=== PATIENT | female | born 1955 | race Caucasian/White ===

== ENCOUNTER 2017-02-16 10:24 | Day surgery (SDC) | payer BC ==
[~2017-02-16 10:24] MED LIST: NS 0.9% 1000 ML* 1,000 ML IV SCH
[2017-02-16] MEDS ORDERED: Midazolam* 1 MG/ML 2 ML VIAL (2 MG) ONE ×3 (10:47→12:48)
[2017-02-16] MEDS ORDERED: fentaNYL* 50 MCG/ML 2 ML VIAL (100 MCG VIAL) ONE (10:47)
[2017-02-16] MEDS ORDERED: Buffered Lidocaine 1% SYRIN* 5 ML/SYR SYRINGE ONE (10:55)
[2017-02-16] MEDS ORDERED: Clindamycin 900 MG IVPREMIX(* 900 MG/50 ML SDV IV ONE (10:55)
[2017-02-16] MEDS ORDERED: Lidocain 1% EPI 1:100,000 * 30 ML MDV ONE ×2 (11:07→11:44)
[2017-02-16] MEDS ORDERED: Lidocaine 2% PF * 5 ML VIAL ONE (11:39)
[2017-02-16] MEDS ORDERED: diPHENhydraMINE IV* 50 MG/ML 1 ml VIAL (BENADRYL) ONE (11:39)
[2017-02-16] MEDS ORDERED: Propofol* 10 MG/ML 20 ML BTL IV PUSH ONE ×2 (11:39→13:08)
[2017-02-16] MEDS ORDERED: Famotidine IV* 10 MG/ML 2 ML (20 mg) ONE (11:39)
[2017-02-16] MEDS ORDERED: KETAMINE HCL* 50 MG/ML 10 ML VIAL ONE (12:03)
[2017-02-16] MEDS ORDERED: HYDROmorphone* 1 MG/ML 1 ML SYR IV PRN (12:18)
[2017-02-16] MEDS ORDERED: Acetaminophen TAB* 325 MG PO PRN (12:18)
[2017-02-16] MEDS ORDERED: PROCHLORPERAZINE INJ 5 MG/ML 2 ML VIAL IV PRN (12:18)
[2017-02-16] MEDS ORDERED: HYDROcodone/ACETAMIN 5-325 MG* 1 TAB PO PRN (12:18)
[2017-02-16] MEDS ORDERED: Ondansetron INJ* 2 MG/ML VIAL IV PRN (12:18)
[2017-02-16 15:48] VITALS: BP 145/82
== END 2017-02-16 16:02 | disposition home or self-care (01) ==
LOC: OR 10:24
PROVIDERS: ATTEND Plastic Surgery
DX: C44.329 Squamous cell carcinoma of skin of other parts of face (principal); Z87.891 Personal history of nicotine dependence; F41.8 Other specified anxiety disorders; I10 Essential (primary) hypertension; I36.8 Other nonrheumatic tricuspid valve disorders
CPT/HCPCS: 88305; 88331; 88332; J1200; J2250; J2704; J3010

== ENCOUNTER 2017-03-18 09:16 | Day surgery (SDC) | payer BC ==
[~2017-03-18 09:16] MED LIST changes: +Buffered Lidocaine 0.9% SYRIN* 5 ML/SYR SYRINGE INTRADERM ONE; -NS 0.9% 1000 ML* 1,000 ML IV SCH
[2017-03-18] MEDS ORDERED: Buffered Lidocaine 0.9% SYRIN* 5 ML/SYR SYRINGE ONE (09:22)
[2017-03-18] MEDS ORDERED: ceFAZolin 2 GM PREMIX(*) 0 GM/0 ML BAG IVPB ONE (09:22)
[2017-03-18] MEDS ORDERED: Clindamycin 900 MG IVPREMIX(* 900 MG/50 ML SDV IV ONE (10:56)
[2017-03-18] MEDS ORDERED: Lidocaine 1% MPF wEPI 200,000* 30 ML SDV ONE (11:01)
[2017-03-18] MEDS ORDERED: Bupivacaine 0.25% W/EPI* 50 ML VIAL ONE (11:02)
[2017-03-18] MEDS ORDERED: Mineral Oil Sterile, TOPICAL* 25 ML BTL ONE (11:06)
[2017-03-18] MEDS ORDERED: Bupivacaine 0.25% EPI 200,000* 30 ML SDV ONE (11:06)
[2017-03-18] MEDS ORDERED: Methylene Blue 1% (ANTIDOTE)* 10 MG/ML 1 ML SDV VIAL IVPB ONE (11:06)
[2017-03-18] MEDS ORDERED: fentaNYL* 50 MCG/ML 2 ML VIAL (100 MCG VIAL) ONE (11:27)
[2017-03-18] MEDS ORDERED: Midazolam* 1 MG/ML 5 ML VIAL (5 MG) ONE (11:28)
[2017-03-18] MEDS ORDERED: Lidocaine 2% PF * 5 ML VIAL ONE (12:03)
[2017-03-18] MEDS ORDERED: Propofol* 10 MG/ML 20 ML BTL IV PUSH ONE ×2 (12:03→13:00)
[2017-03-18] MEDS ORDERED: Midazolam* 1 MG/ML 2 ML VIAL (2 MG) ONE (12:57)
[2017-03-18] MEDS ORDERED: Labetalol IV* 5 MG/ML 20 ML VIAL ONE (14:16)
[2017-03-18 14:43] VITALS: BP 140/82
== END 2017-03-18 14:55 | disposition home or self-care (01) ==
LOC: OR 09:16
PROVIDERS: ATTEND Plastic Surgery
PROC: 0HBJXZZ Excision of Left Upper Leg Skin, External Approach (ICD-10-PCS; 2017-03-18)
PROC: 0HRJX74 Replacement of Left Upper Leg Skin with Autologous Tissue Substitute, Partial Thickness, External Approach (ICD-10-PCS; principal; 2017-03-18 10:45)
DX: C44.729 Squamous cell carcinoma of skin of left lower limb, including hip (principal); I10 Essential (primary) hypertension
CPT/HCPCS: 88305; 88331; 88332; A9270-GY; J0690; J2001; J2250; J2704; J3010

== ENCOUNTER 2017-08-05 06:40 | Day surgery (SDC) | payer BC ==
[2017-08-05] MEDS ORDERED: Ondansetron INJ* 2 MG/ML VIAL ONE (07:15)
[2017-08-05] MEDS ORDERED: Dexamethasone IV* 4 MG/ML 1 ML (4 MG) ONE (07:15)
[2017-08-05] MEDS ORDERED: Clindamycin 900 MG IVPREMIX(* 900 MG/50 ML SDV IV ONE (07:16)
[2017-08-05] MEDS ORDERED: Bacitracin OINTMENT* 1 TUBE ONE (07:19)
[2017-08-05] MEDS ORDERED: fentaNYL* 50 MCG/ML 2 ML VIAL (100 MCG VIAL) ONE (07:32)
[2017-08-05] MEDS ORDERED: Midazolam* 1 MG/ML 2 ML VIAL (2 MG) ONE ×2 (07:32→08:03)
[2017-08-05] MEDS ORDERED: Lidocaine 1% MPF wEPI 200,000* 30 ML SDV ONE (07:38)
[2017-08-05] MEDS ORDERED: Famotidine IV* 10 MG/ML 2 ML (20 mg) ONE (07:46)
[2017-08-05] MEDS ORDERED: KETAMINE HCL* 50 MG/ML 10 ML VIAL ONE (08:01)
[2017-08-05] MEDS ORDERED: fentaNYL* 50 MCG/ML 2 ML VIAL (100 MCG VIAL) IV PRN (08:28)
[2017-08-05] MEDS ORDERED: Acetaminophen TAB* 325 MG PO PRN (08:28)
[2017-08-05] MEDS ORDERED: HYDROcodone/ACETAMIN 5-325 MG* 1 TAB PO PRN (08:28)
[2017-08-05] MEDS ORDERED: Ondansetron INJ* 2 MG/ML VIAL IV PRN (08:28)
[2017-08-05] MEDS ORDERED: PROCHLORPERAZINE INJ 5 MG/ML 2 ML VIAL IV PRN (08:28)
[2017-08-05] MEDS ORDERED: Lidocaine 2% PF * 5 ML VIAL ONE (08:37)
[2017-08-05] MEDS ORDERED: Propofol* 10 MG/ML 20 ML BTL IV PUSH ONE (08:37)
[2017-08-05 09:40] VITALS: BP 122/78
== END 2017-08-05 09:35 | disposition home or self-care (01) ==
LOC: OREAST 06:40
PROVIDERS: ATTEND Plastic Surgery
DX: H02.401 Unspecified ptosis of right eyelid (principal); H02.89 Other specified disorders of eyelid; I10 Essential (primary) hypertension; F41.8 Other specified anxiety disorders; I36.1 Nonrheumatic tricuspid (valve) insufficiency; Z85.828 Personal history of other malignant neoplasm of skin
CPT/HCPCS: 88300; A9270-GY; J1100; J2001; J2250; J2405; J2704; J3010

== ENCOUNTER 2017-09-10 09:12 | Observation (INO) | payer BC ==
[~2017-09-10 09:12] MED LIST changes: +Famotidine IV* 10 MG/ML 2 ML (20 mg) IV ONE
[2017-09-10] MEDS ORDERED: Buffered Lidocaine 0.9% SYRIN* 5 ML/SYR SYRINGE ONE (09:28)
[2017-09-10] MEDS ORDERED: Famotidine IV* 10 MG/ML 2 ML (20 mg) ONE (09:28)
[2017-09-10] MEDS ORDERED: fentaNYL* 50 MCG/ML 5 ML VIAL (250 MCG VIAL) ONE ×2 (12:38→14:32)
[2017-09-10] MEDS ORDERED: Ondansetron INJ* 2 MG/ML VIAL ONE ×2 (12:38→18:11)
[2017-09-10] MEDS ORDERED: Lidocaine 2% PF * 5 ML VIAL ONE (12:38)
[2017-09-10] MEDS ORDERED: Cisatracurium* 2 MG/ML MDV 5 ML ONE (12:38)
[2017-09-10] MEDS ORDERED: Dexamethasone IV* 4 MG/ML 1 ML (4 MG) ONE (12:38)
[2017-09-10] MEDS ORDERED: Propofol* 10 MG/ML 20 ML BTL IV PUSH ONE (12:38)
[2017-09-10] MEDS ORDERED: KETAMINE HCL* 50 MG/ML 10 ML VIAL ONE (12:39)
[2017-09-10] MEDS ORDERED: Lidocaine 1% MPF wEPI 200,000* 30 ML SDV ONE (12:39)
[2017-09-10] MEDS ORDERED: Midazolam* 1 MG/ML 10 ML VIAL (10 MG) ONE (12:39)
[2017-09-10] MEDS ORDERED: Ondansetron INJ* 2 MG/ML VIAL IV PRN ×2 (14:02→22:29)
[2017-09-10] MEDS ORDERED: fentaNYL* 50 MCG/ML 2 ML VIAL (100 MCG VIAL) IV PRN (14:02)
[2017-09-10] MEDS ORDERED: Levalbuterol 0.63MG/3ML NEB* UNIT OF USE INH PRN (14:02)
[2017-09-10] MEDS ORDERED: EPHEDrine (Pressors)* 50 MG/ML VIAL ONE (14:58)
[2017-09-10] MEDS ORDERED: Bacitracin OINTMENT* 0.5% 0.5 oz TUBE ONE (17:25)
[2017-09-10] MEDS ORDERED: Labetalol IV* 5 MG/ML 20 ML VIAL ONE (18:51)
[2017-09-10] MEDS ORDERED: DiMENhydriNATE IV* 50 MG/ML VIAL ONE (18:51)
[2017-09-10] MEDS ORDERED: Labetalol IV* 5 MG/ML 20 ML VIAL IV PUSH ONE (21:00)
[2017-09-10] MEDS ORDERED: DiMENhydriNATE IV* 50 MG/ML VIAL IV PUSH ONE (21:00)
[2017-09-10] MEDS ORDERED: Ibuprofen ADULT LIQ* 600 MG/30 ML UDC PO PRN (22:22)
[2017-09-10] MEDS ORDERED: HYDROcodone/ACET. 7.5/325 LIQ* 15 ML UDC PO PRN ×2 (22:24→22:25)
[2017-09-10] MEDS ORDERED: Ondansetron ODT TAB* 4 MG PO PRN (22:27)
[2017-09-10] MEDS ORDERED: Morphine INJ* 2 MG/ML 1 ML SYRINGE (TWO MG - NEW SYRINGE VERSION) IV PRN (22:27)
[2017-09-10] MEDS ORDERED: Ondansetron INJ* 2 MG/ML VIAL IM PRN (22:29)
--- NOTE | 2017-09-11 00:36 | HP ---
ATTENDING PHYSICIAN AMENDMENT NOW INCLUDED ON THIS REPORT CC: Dr. Jeff Orellana; Jluis Juarez * HISTORY AND PHYSICAL: DATE OF ADMISSION: 09/10/17 PRIMARY CARE PROVIDER: Dr. Jeff Orellana. ATTENDING PHYSICIAN: Dr. Roseann Kwong * (dictated by Piotr Alcala NP) CHIEF COMPLAINT: Status post right parotidectomy with neck dissection. HISTORY OF PRESENT ILLNESS: Ms. Kumar is a 61-year-old female with past medical history significant for hypertension, malignant neoplasm of the parotid gland, skin cancer, depression, anxiety, who presented to the hospital to have a right parotidectomy with a neck dissection with Dr. Jluis Juarez today. The patient states that leading up to her procedure she has been in a good state of health. She denies any recent fever, chills, chest pain, shortness of breath, nausea, vomiting, diarrhea. The patient had resection of a large skin cancer from the right upper cheek approximately 6 months ago. 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 There is no other evidence of metastasis. The hospitalist have been asked to assess with the admission of this patient. PAST MEDICAL HISTORY: 1. Essential hypertension. 2. Malignant neoplasm of the parotid gland. 3. Squamous cell skin carcinoma. 4. Depression. 5. Anxiety. PAST SURGICAL HISTORY: Status post squamous cell excision from the right cheek and leg status post brow lift. HOME MEDICATIONS: Include: 1. Trazodone 50 mg oral daily at bedtime. 2. Zoloft 50 mg oral every morning. 3. Amlodipine 2.5 mg oral every morning. 4. Acetaminophen 1000 mg oral daily as needed for pain. ALLERGIES: AZITHROMYCIN, ERYTHROMYCIN, PENICILLIN, SULFA, TETRACYCLINE. FAMILY HISTORY: The patient reports her father had a liver and renal carcinoma. She denies any family history of diabetes mellitus or coronary artery disease. SOCIAL HISTORY: The patient is a former smoker. She quit at age 25. She denies any alcohol, recreational drug use. The patient's daughter, Angie Aguilar will be her surrogate decision maker in the event she is unable to make decisions for herself. REVIEW OF SYSTEMS: I performed a 14-point of review of systems. All the pertinent positives and negatives are mentioned in the history of present illness. The remaining review of systems are negative. PHYSICAL EXAMINATION GENERAL APPEARANCE: The patient is alert, pleasant, and appears to be in no acute distress. VITAL SIGNS: Temperature 97.5, heart rate 93, respiratory rate 16, O2 sat 98%, blood pressure 155/95. HEENT: Normocephalic, atraumatic. Pupils are equal and reactive to light. Extraocular movements are intact. NECK: Supple. There is an incision in the patient's right side of her neck. There is some swelling and a ADRIENNE drain intact. RESPIRATORY: There is no accessory muscle use. The lungs are clear to auscultation bilaterally. CARDIOVASCULAR: Regular rate and rhythm. S1 and S2 present. There are no murmurs, rubs, or gallops. ABDOMEN: Soft, nontender, and nondistended. There are bowel sounds present x4. EXTREMITIES: There is no lower extremity edema. DP and PT pulses are 2+ and symmetric. MUSCULOSKELETAL: There is no clubbing or cyanosis noted. The patient exhibits good strength in all extremities. NEUROLOGICAL: The patient is alert but drowsy and oriented x4. Cranial nerves II through XII are grossly intact. PSYCHOLOGICAL: The patient is calm and cooperative. SKIN: As above, the patient has an incision and dressing with a ADRIENNE drain to the right side of her anterior neck. IMPRESSION: Ms. Kumar is a 61-year-old female with past medical history significant for hypertension, anxiety, depression, squamous cell skin carcinoma with a malignant neoplasm to the parotid gland. She presented to the hospital today for a right parotidectomy and neck dissection with Dr. Juarez. She will be admitted as an observation overnight. ASSESSMENT AND PLAN: 1. Status post right parotidectomy with neck dissection. The patient will be admitted to monitor due to her risk of bleeding. She will have a ADRIENNE drain and has a [place] drain in place. Management will be per ENT. The patient will have pain medication. 2. Hypertension. The patient will be continued on her home amlodipine. She has been slightly hypertensive while on the PACU and has received labetalol. 3. Anxiety and depression. The patient will be continued on her home Zoloft. 4. Fluid, electrolytes, and nutrition. The patient will be on a soft diet. 5. Code status. Full code. 6. DVT prophylaxis. She is at high risk and will have SCDs. 7. Disposition. Observation. The plan will be for discharge to home in the morning. TIME SPENT: Time for this admission was approximately 60 minutes, greater than half of that was spent with the patient discussing medications, past medical history, the events leading up to her arrival today, performing a physical examination. The case has been reviewed with the attending, Dr. Kwong, who agrees with the plan of care. Reviewed by PIOTR ALCALA, SUPERVISOR NUC[employer] MEDICINE-Nasir 09/15/172013 ADDENDUM: Ms. Kumar is a 61-year-old female who just underwent resection of a right parotid gland due to metastatic skin squamous cell carcinoma and radical neck dissection performed by Dr. Juarez. Our service is going to be admitting service for the ENT physicians. The patient is going to be observed postoperatively and plan for the patient is to be discharged the next day. For full details of patient's presentation and plan, please see history and physical dictated by Piotr Alcala on 09/10/17, with which I agree. ROSEANN KWONG MD [id number]/CPS #: [id number]/CPS #: [id number] JENNA
--- NOTE | 2017-09-11 00:44 | HP ---
HISTORY AND PHYSICAL: ADDENDUM: Ms. Kumar is a 61-year-old female who just underwent resection of a right parotid gland due to metastatic skin squamous cell carcinoma and radical neck dissection performed by Dr. Juarez. Our service is going to be admitting service for the ENT physicians. The patient is going to be observed postoperatively and plan for the patient is to be discharged the next day. For full details of patient's presentation and plan, please see history and physical dictated by Teresa Rubio on 09/10/17, with which I agree. [id number]/[facility] #: [id number] MTDD
[2017-09-11] MEDS ORDERED: traZODone TAB* 50 MG TAB PO SCH (01:00)
[2017-09-11 08:32] VITALS: BP 102/64
[2017-09-11] MEDS ORDERED: Sertraline* 50 MG TAB PO SCH (09:00)
[2017-09-11] MEDS ORDERED: amLODIPine TAB* 5 MG PO SCH (09:00)
--- NOTE | 2017-09-11 09:20 | DCNOTE ---
Subjective Date of Service: 09/11/17 Interval History: This is a 61 year old female POD1, s/p resection of the right parotid gland with radical neck dissection 2/2 squamous cell carcinoma. She has been cleared for discharge by Dr. Juarez (ENT) today. Objective Active Medications: Hydrocodone Bitart/Acetaminophen (Nortab 7.5/325 Liq*) 10 ml PO Q4H PRN PRN Reason: PAIN - MODERATE Hydrocodone Bitart/Acetaminophen (Nortab 7.5/325 Liq*) 20 ml PO Q4H PRN PRN Reason: PAIN - SEVERE Last Admin: 09/11/17 05:48 Dose: 20 ml Amlodipine Besylate (Norvasc Tab*) 2.5 mg PO DAILY [facility] Lactated Ringer's (Lactated Ringers 1000 Ml Bag*) 1,000 mls @ 100 mls/hr IV PER RATE [facility] Ibuprofen (Motrin Liq Adult*) 800 mg PO Q8H PRN PRN Reason: PAIN - MILD Morphine Sulfate (Morphine Inj (Syringe)*) 2 mg IV Q2H PRN PRN Reason: PAIN Ondansetron HCl (Zofran Odt Tab*) 8 mg PO Q6H PRN PRN Reason: NAUSEA/VOMITING Ondansetron HCl (Zofran Inj*) 8 mg IM Q6H PRN PRN Reason: NAUSEA/VOMITING Ondansetron HCl (Zofran Inj*) 8 mg IV Q6H PRN PRN Reason: NAUSEA/VOMITING Sertraline HCl (Zoloft*) 50 mg PO DAILY [facility] Last Admin: 09/11/17 08:50 Dose: 50 mg Trazodone HCl (Desyrel Tab*) 50 mg PO BEDTIME [facility] Last Admin: 09/11/17 03:06 Dose: Not Given Vital Signs - 8 hr 09/11/17 09/11/17 09/11/17 03:36 05:48 07:47 Temperature 98.7 F 97.8 F Pulse Rate 73 69 Respiratory 16 16 16 Rate Blood Pressure 105/59 102/64 (mmHg) O2 Sat by Pulse 93 96 Oximetry 09/11/17 08:50 Temperature Pulse Rate Respiratory 16 Rate Blood Pressure (mmHg) O2 Sat by Pulse Oximetry Oxygen Devices in Use Now: None Appearance: Well appearing, NAD Ears/Nose/Mouth/Throat: NL Teeth, Lips, Gums Neck: Trachea Midline, - - Staple line CDI, bibiana drain located inferior to the right earlobe, mild erythema, no drainage appreciated Respiratory: Symmetrical Chest Expansion and Respiratory Effort, Clear to Auscultation Cardiovascular: NL Sounds; No Murmurs; No JVD, RRR, No Edema Abdominal: NL Sounds; No Tenderness; No Distention Extremities: No Edema, No Clubbing, Cyanosis Skin: No Rash or Ulcers Neurological: Alert and Oriented x 3, NL Sensation, NL Muscle Strength and Tone Nutrition: Taking PO's Assess/Plan/Problems-Billing Assessment: Plan for DC to home today as per ENT/surgery. - Patient Problems (1) Depression Code(s): F32.9 - MAJOR DEPRESSIVE DISORDER, SINGLE EPISODE, UNSPECIFIED SNOMED Code(s): 33362039 Comment: - Continue home meds, mood stable (2) Hypertension Code(s): I10 - ESSENTIAL (PRIMARY) HYPERTENSION SNOMED Code(s): 40059401 Comment: - Mild hypotension today - Hold norvasc (3) Parotid neoplasm Code(s): D49.0 - NEOPLASM OF UNSPECIFIED BEHAVIOR OF DIGESTIVE SYSTEM SNOMED Code(s): 429080137 Comment: - POC as per ENT/surgery - Cleared by Dr. Juarez for DC this morning - Written DC order and instructions on chart - Has follow up appt and presecriptions already (4) Tobacco dependence Code(s): F17.200 - NICOTINE DEPENDENCE, UNSPECIFIED, UNCOMPLICATED SNOMED Code (s): 19100658 Comment: - Recommend cessation Status and Disposition: Medically optimized for DC home today. Counseling and/or Coordination of Care Minutes: Coordinated with patient and RN.
--- NOTE | 2017-09-11 13:01 | OP ---
DATE OF OPERATION: 09/10/17 - ROOM #336 DATE OF : 55 SURGEON: Jluis Juarez MD CLOTH DESIZING RANGE OPERATOR CHIEF: Clemente White MD ANESTHESIOLOGIST: Kai Lorenzo MD ANESTHESIA: General. PRE-OP DIAGNOSIS: Malignant neoplasm, parotid gland. POST-OP DIAGNOSIS: Malignant neoplasm, parotid gland. OPERATIVE PROCEDURE: Right parotidectomy with right selective neck dissection. ESTIMATED BLOOD LOSS: Less than 50 cc. SPECIMENS: 1. Right parotidectomy with attached selected neck dissection. 2. Skin overlying parotid tumor. COMPLICATIONS: None. DESCRIPTION OF PROCEDURE: This is a 61-year-old woman who approximately 7 months ago had large skin cancer resected from the right upper cheek. Ultimately she developed a mass in the right parotid gland. Final needle aspiration was consistent with metastatic squamous cell carcinoma. Preoperative staging including PET scan and MRI revealed no evidence of distant metastasis and no other foci of hypermetabolic activity to suggest additional lymph node involvement. The decision was made to proceed with a right parotidectomy and selective neck dissection for control of disease and staging. On 09/10/17, the patient was brought to the operating room. General anesthesia was induced and an oral endotracheal tube was placed. The NIMS monitor was then applied and found to be in good working order. The intended incision line was marked, infiltrated with approximately 9 cc of 1% lidocaine with 1 to 200,000 epinephrine. The right hemiface was then prepped with Betadine. The patient was draped sterilely and a time out was performed. The skin incision was made with a 15-blade. The incision began in the preauricular crease, extended inferiorly around the lobule posteriorly into the upper neck and then curved anteriorly departing from the patient's cervicofacial advancement flap scar into the anterior neck. There was significant scarring because of the patient's prior skin cancer resection and cervicofacial advancement flap. Once the skin was incised, flap was raised over the parotid gland inferiorly, this was raised anteriorly as well in the subplatysmal plane. The skin overlying the parotid tumor, while not fixed, was very thin and although it was able to be resected intact, it was ultimately removed at the end of case because of concerns regarding marginal control at the skin. Once the flap was elevated anteriorly, there was some posterior elevation of the flap done over the sternocleidomastoid muscle. The procedure was begun at the parotid, plane was developed anterior to the external auditory canal. Anterior wall of the external auditory canal and the tympanomastoid suture line were used as landmarks to guide dissection. The facial nerve identified and positively identified with stimulation. This was then traced distally. The most superior division of facial nerve did not need to be completely exposed as the tumor was in the parotid tail. The entire superficial lobe of the parotid was elevated off of the nerve from superior to inferior. The tumor because of its proximity to the sternocleidomastoid muscle was then resected off of the sternocleidomastoid muscle with a small cuff of muscle. Once the parotid tumor was adequately mobilized and the distal lower branches of the facial nerve exposed. The digastric was then subsequently used as a landmark to guide dissection into the upper neck. The borders of the neck dissection were the digastric muscle superiorly, the floor of the neck posteriorly and the midline anteriorly, inferiorly the dissection proceeded down to the floor the neck well below the level of the omohyoid. Variety of structures were identified and used to guide dissection of the node packet, which was done primarily with the bipolar and tissue scissors. Among these were the digastric hypoglossal nerve, the spinal accessary nerve and the jugular vein. The digastric once completely exposed, was then used as a landmark to find the hypoglossal nerve. The hypoglossal nerve was then followed superiorly to identify the internal jugular vein and the spinal accessary nerve. The spinal accessory nerve was then followed inferiorly to its insertion into the sternocleidomastoid muscle. The submuscular recess overlying the splenius muscle was dissected and pulled underneath the spinal accessory nerve. Once this was free, the fascia overlying the sternocleidomastoid muscle was peeled anteriorly to the floor of the neck. The floor of the neck fascia was left intact as were the cervical spinal rootlet. The inferior extent of the dissection was again the floor of the neck proximally 2 cm below the omohyoid. The lymph node packet was rolled anteriorly off of the floor of the neck round the jugular vein and off of the carotid artery and ultimately was able to be resected in continuity with parotid gland. From time to time, small vessels were encountered, which were either controlled by small hemoclips or 3-0 silks. Once the specimen was out, the wound was irrigated, multiple Valsalvas were performed. Any small areas of bleeding were controlled with bipolar cautery. The nerve was stimulated and found to be in good working order. At this point, the skin flap was evaluated. The skin overlying the tumor was so thin and appeared nonviable and because of additional concerns regarding the skin margin, this was resected and sent as a separate specimen. The skin of the posterior neck was then elevated. A small back cut was made behind the ear lobe to facilitate advancement of the posterior flap and the wound was ultimately able to be closed in layers, dermal layer of 3-0 Vicryl and ultimately skin with 5-0 nylon in front of the ear and the neck was closed with kristina. A #10 ADRIENNE was placed in the neck draining the space underneath the sternocleidomastoid muscle and a Corrina drain was placed coming out of the incision underneath the earlobe. Bacitracin ointment was applied. The patient was then extubated, delivered to PACU in stable condition. [id number]/CPS #: [id number] JENNA
--- NOTE | 2017-09-11 20:53 | DS ---
AMENDED REPORT NOW INCLUDES COSIGNER DESIGNATION - ESIGNED BEFORE ADJUSTMENT CC: Dr. Juarez; Dr. Jeff Orellana * DISCHARGE SUMMARY: DATE OF ADMISSION: 09/10/17 DATE OF DISCHARGE: 09/11/17 ATTENDING PHYSICIAN: Dr. Roseann Kwong * (DICTATED BY CARLOZ VAN NP) CONSULTING PHYSICIAN: Dr. Juarez, ENT. PRIMARY CARE PROVIDER: Dr. Jeff Orellana. HOSPITAL COURSE: This is a 61-year-old female patient, who presented to Dr. Juarez for resection of a metastatic squamous cell carcinoma. She had infiltration into the right parotid gland and underwent a resection of right parotid gland with a radical neck dissection. She had her procedure on . She was admitted overnight for observation and management of pain and drains as per the request of ENT Surgery. The patient had an uneventful night overnight, had no difficulty swallowing. Pain was well controlled. Received IV fluids and supportive care. Had no alterations in vital signs. Remains stable throughout her hospitalization. She was seen by Dr. Juarez this morning on 09/11/17, was cleared for discharge to home with followup. PHYSICAL EXAMINATION: Vital signs at the time of discharge: Blood pressure 105 /59, respiratory rate 16, heart rate 86, oxygen saturation 93% on room air. LABORATORY DATA: At the time of discharge: Preoperative chemistries revealed BUN of 14, creatinine 0.89, GFR 64.5, and glucose of 105. MEDICATIONS: At the time of discharge include: 1. Lortab 7.5/325. 2. Amlodipine 2.5 mg daily. 3. Sertraline 50 mg daily. 4. Trazodone 50 mg at bedtime. DISPOSITION: The patient was discharged in stable condition. Wound care instructions were given directly to the patient in handwritten by Dr. Juarez. The patient was instructed to follow up with him this Wednesday to have her wound looked at. She was also instructed to not take her blood pressure medication, her amlodipine, until she had her blood pressure rechecked either by her primary care doctor or at the ENT office this coming visit because her blood pressure systolics were quite low. The patient indicates she did not have a blood pressure cuff at home, so we directed her to not take her blood pressure medication until she had it checked with her primary care provider. The patient stated understanding of her followups, her medications, and her instructions at the time of discharge. Again, she was discharged to home in stable condition. Medications were forwarded by the ENT office directly prior to her surgery. CARLOZ VAN NP [id number]/[facility] #: [id number] JENNA
== END 2017-09-11 11:00 | disposition home or self-care (01) ==
LOC: OR 09:12 → SSU 21:20
PROVIDERS: ADMIT Nurse Practitioner Family; ATTEND Otolaryngology
DX: C79.89 Secondary malignant neoplasm of other specified sites (principal); Z85.828 Personal history of other malignant neoplasm of skin; I10 Essential (primary) hypertension; F41.8 Other specified anxiety disorders; Z79.899 Other long term (current) drug therapy; Z87.891 Personal history of nicotine dependence
CPT/HCPCS: 88305; 88307; 88341; 88342; 96374; 96375; A9270-GY; G0378; J1100; J1240; J2001; J2250; J2405; J2704; J3010

== ENCOUNTER 2017-11-20 08:29 | Emergency (ER) | payer BC ==
[2017-11-20 08:53] VITALS: BP 160/95
--- NOTE | 2017-11-20 09:20 | UC ---
Abdominal Pain Female HPI - HPI Summary HPI Summary: Nausea vomiting and head ache for 3 days is getting a little better - History of Current Complaint Chief Complaint: UCGI Stated Complaint: VOMITING,HEADACHE Time Seen by Provider: 11/20/17 09:13 Hx Obtained From: Patient ?: No Onset/Duration: Sudden Onset, Lasting Days - 3, Still Present Timing: Constant Severity Initially: Moderate Severity Currently: Moderate Pain Intensity: 7 Pain Scale Used: 0-10 Numeric Location: Other - head ache that travels down back of neck in to both shoulders Radiates: No Aggravating Factor(s): Nothing Alleviating Factor(s): Nothing Associated Signs and Symptoms: Positive: Decreased Appetite, Nausea, Vomiting Allergies/Adverse Reactions: Allergies Allergy/AdvReac Type Severity Reaction Status Date / Time MS Azithromycin Allergy Severe hives, Verified 11/20/17 08:53 [Azithromycin] tongue, lips swelling, hard to breathe MS Erythromycin Allergy Severe trouble Verified 11/20/17 08:53 [Erythromycin] breathing, lips swell MS Penicillins [Penicillins] Allergy Severe hives, Verified 11/20/17 08:53 tongue,lips swelling, hard to breathe MS Sulfa Antibiotics Allergy Severe hives, Verified 11/20/17 08:53 [Sulfa Antibiotics] tongue, lips swelling, hard to breathe MS Tetracycline Allergy Severe hives, Verified 11/20/17 08:53 [Tetracycline] tongue, lips swelling, hard to breathe PMH/Surg Hx/FS Hx/Imm Hx Previously Healthy: No Cardiovascular History: Hypertension Psychological History: Depression Cancer History: Other Other Cancer History: right parotid melanoma - Surgical History Surgical History: Yes Surgery Procedure, Year, and Place: 2004 node on thyroid removed [facility] [place], [place]. 1994 c- section [facility] [place] [place]. 01/2017 CANCEROUS TUMOR REMOVED FROM [facility] [place] [place]. melanoma cancer neck Aug 2017 - Family History Known Family History: Positive: None - Social History Occupation: Retired Lives: With Family Alcohol Use: Weekly Alcohol Amount: 1-2 DRINKS/WEEK Substance Use Type: Marijuana Substance Use Comment - Amount & Last Used: FEW Xs MONTH. WILL REFRAIN UNTIL AFTER SURGERY Smoking Status (MU): Former Smoker Type: Cigarettes Amount Used/How Often: 1 pack a week, smoked for 3 years Have You Smoked in the Last Year: No When Did the Patient Quit Smoking/Using Tobacco: 1975 Review of Systems Constitutional: Negative Skin: Negative Eyes: Negative ENT: Negative Respiratory: Negative Cardiovascular: Negative Gastrointestinal: Vomiting, Nausea Genitourinary: Negative Motor: Negative Neurovascular: Negative Musculoskeletal: Negative Neurological: Headache Psychological: Negative Is Patient Immunocompromised?: No All Other Systems Reviewed And Are Negative: Yes Physical Exam Triage Information Reviewed: Yes Appearance: Well-Appearing, No Pain Distress, Thin Vital Signs: Initial Vital Signs Temp 96.8 F 11/20/17 08:45 Pulse 73 11/20/17 08:45 Resp 20 11/20/17 08:45 BP 160/95 11/20/17 08:45 Pulse Ox 98 11/20/17 08:45 Vital Signs Reviewed: Yes Eye Exam: Normal Eyes: Positive: Conjunctiva Clear ENT Exam: Normal ENT: Positive: Normal ENT inspection, Hearing grossly normal, Pharynx normal, TMs normal, Uvula midline. Negative: Nasal congestion, Tonsillar swelling, Tonsillar exudate, Trismus, Muffled voice, Hoarse voice, Sinus tenderness Dental Exam: Normal Neck exam: Normal Neck: Positive: Supple, Nontender, No Lymphadenopathy Respiratory Exam: Normal Respiratory: Positive: Chest non-tender, Lungs clear, Normal breath sounds, No respiratory distress, No accessory muscle use Cardiovascular Exam: Normal Cardiovascular: Positive: RRR, No Murmur, Pulses Normal, Brisk Capillary Refill Abdominal Exam: Normal Abdomen Description: Positive: Nontender, No Organomegaly, Soft. Negative: CVA Tenderness (R), CVA Tenderness (L), Distended, Guarding Bowel Sounds: Positive: Present Musculoskeletal Exam: Normal Musculoskeletal: Positive: Strength Intact, ROM Intact Neurological Exam: Normal Neurological: Positive: Alert, Muscle Tone Normal Psychological Exam: Normal Skin Exam: Normal Re-Evaluation - Re-Evaluation First Eval Change: Improved - feeling better---keeping down po fluids, headaches lessening Abd Pain Female Course/Dx - Course Course Of Treatment: clear liquids and advance diet slowly prn zofran, ibuprofen prn pain to ed should symptoms worsen in anywat, folow blood pressure with pcp - Differential Dx/Diagnosis Provider Diagnoses: Acute nausea/vomiting/headache, htn in poor control Discharge - Discharge Plan Condition: Stable Disposition: HOME Prescriptions: Ondansetron ODT TAB* [Zofran 4 MG Odt TAB*] 4 mg PO Q6H PRN #6 tab.odt PRN Reason: nausea Patient Education Materials: Dehydration (ED), Acute Nausea and Vomiting (ED), Hypertension (ED) Referrals: Jeff Orellana MD [Primary Care Provider] - 1 Week
[2017-11-20] MEDS ORDERED: Ondansetron ODT TAB* 4 MG PO ONE (09:24)
[2017-11-20] MEDS ORDERED: Ibuprofen TAB* 400 MG PO ONE (09:24)
== END 2017-11-20 10:35 | disposition home or self-care (01) ==
LOC: UCEAST 08:29
DX: R11.2 Nausea with vomiting, unspecified (principal); R51 Headache; I10 Essential (primary) hypertension; F32.9 Major depressive disorder, single episode, unspecified; Z85.820 Personal history of malignant melanoma of skin; Z87.891 Personal history of nicotine dependence
CPT/HCPCS: 81003; 99212; A9270-GY; G0463

== ENCOUNTER 2017-11-23 15:40 | Emergency (ER) | payer BC ==
--- NOTE | 2017-11-23 16:49 | RAD ---
Indication: Slurred speech. Aphasia. History of head and neck cancer. Comparison: October 08, [address] Technique: Noncontrast CT vertex of skull through foramen magnum. Report: Moderate volume of RIGHT greater than LEFT bilateral supratentorial subarachnoid hemorrhage. Associated sulcal effacement at the bilateral temporal and RIGHT frontal and parietal lobes. Negative for midline shift. Negative for ventricular compression or ventriculomegaly. Patent basal cisterns. No subdural or epidural hematoma evident. No intra-axial hematoma evident. Decreased density in the periventricular and subcortical white matter while non-specific is most likely due to chronic microangiopathy. Negative for otto matter white matter obscuration. Unremarkable visualized orbital contents. Negative for fracture or suspicious lesion of the calvarium or skull base. Clear visualized paranasal sinuses and mastoid air spaces. Negative for scalp hematoma. IMPRESSION: 1. Moderate volume of RIGHT greater than LEFT bilateral supratentorial subarachnoid hemorrhage. Associated sulcal effacement at the bilateral temporal and RIGHT frontal and parietal lobes. Negative for midline shift or downward herniation. 2. Stigmata of probable chronic small vessel ischemic disease. Results discussed with Dr. Deng 11/23/2017 4:46 PM EST
[2017-11-23 16:51] LABS: ABS Basophils 0 10^3/ul (0-0.2); ABS Eosinophils 0.1 10^3/ul (0-0.6); ABS Lymphocytes 0.5 10^3/ul (1.0-4.8); ABS Monocytes 0.8 10^3/ul (0-0.8); ABS Neutrophils 7.2 10^3/ul (1.5-7.7); ABS Nucleated RBC 0 10^3/ul; Eosinophil % 0.8 % (0-6); Hematocrit 40 % (35-47); Hemoglobin 13.6 g/dl (12.0-16.0); Lymphocyte % 5.9 % (25-47); Mean Corpuscular HGB Conc 34 g/dl (31-36); Mean Corpuscular Hemoglobin 34 pg (27-31); Mean Corpuscular Volume 98 fL (80-97); Mean Platelet Volume 8 um3 (7.4-10.4); Nucleated Red Blood Cells % 0; Platelet Count 196 10^3/ul (150-450); Red Blood Count 4.05 10^6/ul (4.0-5.4); Red Cell Distribution Width 14 % (10.5-15); White Blood Count 8.6 10^3/ul (3.5-10.8)
[2017-11-23 16:56] LABS: INR 0.95 (0.77-1.02)
[2017-11-23] MEDS ORDERED: NS 0.9% 1000 ML* 1,000 ML IV SCH (17:00)
[2017-11-23 17:25] LABS: EGFR Non-African American 56.2 (>60)
[2017-11-23] MEDS ORDERED: Metoprolol Tartrate IV* 1 MG/ML 5 ML VIAL IV ONE (18:04)
[2017-11-23] MEDS ORDERED: levETIRAcetam IV* 1,000 MG in NS 0.9% 100 ML* 100 ML IVPB ONE (18:06)
[2017-11-23] MEDS ORDERED: LORazepam INJ* 2 MG/ML 1 ML VIAL IV ONE (18:36)
--- NOTE | 2017-11-23 19:00 | ED ---
Ari Beal Jennifer, scribed for Caden Deng MD on 11/23/17 at 1646 . Neurological HPI - HPI Summary HPI Summary: The patient is a 62 year old female who presents to the ED with slurred speech and headache for the past six days. The headache was sudden onset rated a 9/10 but is now a 3/10 in the ED. The headache is across her forehead and radiates to the back of her head and down to the middle of her back. She denies any back pain in the ED. She additionally complains of high blood pressure, chills, vomiting, a little off-balance, lightheadedness, dizziness, insomnia. Pt denies neck pain, weakness, numbness, fevers, ear pain, abdominal pain, swelling of ankles, and problems eating or drinking. Pt is undergoing radiation for her right parotid. - History of Current Complaint Chief Complaint: EDNeurologicalDeficit Stated Complaint: POSS STROKE PER DR HURLEY Time Seen by Provider: 11/23/17 16:31 Hx Obtained From: Patient Onset/Duration: Sudden Onset, Started days ago - 6 days, Still Present Timing: Constant Onset Severity: Severe Current Severity: Mild Headache Location: Frontal Pain Intensity: 3 Pain Scale Used: 0-10 Numeric Character: Lightheaded, Dizzy, Impaired Speech Aggravating: Nothing Alleviating: Nothing Associated Signs and Symptoms: Positive: Negative - neck pain, weakness, numbness, fevers, ear pain, abdominal pain, swelling of ankles, problems eating or drinking, Headache, Dizziness, Pain, Impaired Speech, Nausea/Vomiting - Allergy/Home Medications Allergies/Adverse Reactions: Allergies Allergy/AdvReac Type Severity Reaction Status Date / Time MS Azithromycin Allergy Severe hives, Verified 11/20/17 08:53 [Azithromycin] tongue, lips swelling, hard to breathe MS Erythromycin Allergy Severe trouble Verified 11/20/17 08:53 [Erythromycin] breathing, lips swell MS Penicillins [Penicillins] Allergy Severe hives, Verified 11/20/17 08:53 tongue,lips swelling, hard to breathe MS Sulfa Antibiotics Allergy Severe hives, Verified 11/20/17 08:53 [Sulfa Antibiotics] tongue, lips swelling, hard to breathe MS Tetracycline Allergy Severe hives, Verified 11/20/17 08:53 [Tetracycline] tongue, lips swelling, hard to breathe PMH/Surg Hx/FS Hx/Imm Hx Endocrine/Hematology History: Denies: Hx Diabetes, Hx Thyroid Disease Cardiovascular History: Reports: Hx Hypertension, Hx Valvular Heart Disease - tricuspid valve prolapse-DR. MAHAJAN- LAST SEEN 1+ YEARS AGO Denies: Hx Pacemaker/ICD Respiratory History: Denies: Hx Asthma GI History: Denies: Hx Ulcer History: Denies: Hx Renal Disease Sensory History: Reports: Hx Contacts or Glasses - WILL WEAR GLASSES Denies: Hx Hearing Aid Opthamlomology History: Reports: Hx Contacts or Glasses - WILL WEAR GLASSES Psychiatric History: Reports: Hx Anxiety - on medication for, Hx Depression - on medication for, Hx Panic Disorder - TAKES MEDS - CONTROLLED - Cancer History Hx Chemotherapy: No Hx Radiation Therapy: No - Surgical History Surgery Procedure, Year, and Place: 2004 node on thyroid removed [facility]. 1994 c- [place] [facility] [place]/2017 CANCEROUS TUMOR REMOVED FROM [facility] [place]. melanoma cancer neck Aug 2017 Hx Anesthesia Reactions: No Infectious Disease History: No Infectious Disease History: Denies: Hx Hepatitis, Hx Human Immunodeficiency Virus (HIV), Traveled Outside the [place] in Last 30 Days - Family History Known Family History: Negative: Hypertension, Diabetes - Social History Alcohol Use: Weekly Alcohol Amount: 1-2 DRINKS/WEEK Substance Use Type: Reports: Marijuana Substance Use Comment - Amount & Last Used: FEW Xs MONTH. WILL REFRAIN UNTIL AFTER SURGERY Smoking Status (MU): Former Smoker Type: Cigarettes Amount Used/How Often: 1 pack a week, smoked for 3 years Have You Smoked in the Last Year: No Review of Systems Positive: Chills Negative: Ear Ache Positive: Other - Hypertension Positive: Vomiting. Negative: Abdominal Pain Negative: Myalgia - Neck pain, Edema Neurological: Other - Off-balance, lightheaded, dizziness, insomnia Positive: Headache. Negative: Weakness, Numbness All Other Systems Reviewed And Are Negative: Yes Physical Exam - Summary Physical Exam Summary: General: well-appearing, no pain distress Skin: warm, color reflects adequate perfusion, dry Head: normal Eyes: EOMI, JUAN ENT: erythema in anterior throat. Neck: supple, nontender Respiratory: CTA, breath sounds present Cardiovascular: RRR Abdomen: soft, nontender Bowel: present Musculoskeletal: normal, strength/ROM intact Neurological: mild slurring of speech, no focal neurologic deficit otherwise. sensory/motor intact, A&O x3 Psychological: affect/mood appropriate Triage Information Reviewed: Yes Vital Signs On Initial Exam: Initial Vitals Temp Pulse Resp BP Pulse Ox 99 F 84 16 171/93 100 11/23/17 15:45 11/23/17 15:45 11/23/17 15:45 11/23/17 15:45 11/23/17 15:45 Vital Signs Reviewed: Yes Diagnostics - Vital Signs Vital Signs Temp Pulse Resp BP Pulse Ox 11/23/17 15:45 99 F 84 16 171/93 100 - Laboratory Lab Results: Lab Results 11/23/17 11/23/17 11/23/17 Range/Units 16:36 16:36 16:36 WBC 8.6 (3.5-10.8) 10^3/ul RBC 4.05 (4.0-5.4) 10^6/ul Hgb 13.6 (12.0-16.0) g/dl Hct 40 (35-47) % MCV 98 H (80-97) fL MCH 34 H (27-31) pg MCHC 34 (31-36) g/dl RDW 14 (10.5-15) % Plt Count 196 (150-450) 10^3/ul MPV 8 (7.4-10.4) um3 Neut % (Auto) 83.9 H (38-83) % Lymph % (Auto) 5.9 L (25-47) % [place] % (Auto) 9.0 H (0-7) % Eos % (Auto) 0.8 (0-6) % Baso % (Auto) 0.4 (0-2) % Absolute Neuts (auto) 7.2 (1.5-7.7) 10^3/ul Absolute Lymphs (auto) 0.5 L (1.0-4.8) 10^3/ul Absolute Monos (auto) 0.8 (0-0.8) 10^3/ul Absolute Eos (auto) 0.1 (0-0.6) 10^3/ul Absolute Basos (auto) 0 (0-0.2) 10^3/ul Absolute Nucleated RBC 0 10^3/ul Nucleated RBC % 0 INR (Anticoag Therapy) 0.95 (0.77-1.02) Sodium 137 (133-145) mmol/L Potassium 3.1 L (3.5-5.0) mmol/L Chloride 100 L (101-111) mmol/L Carbon Dioxide 27 (22-32) mmol/L Anion Gap 10 (2-11) mmol/L BUN 20 (6-24) mg/dL Creatinine 1.00 H (0.51-0.95) mg/dL Est GFR ( Amer) 72.3 (>60) Est GFR (Non-Af Amer) 56.2 (>60) BUN/Creatinine Ratio 20.0 (8-20) Glucose 104 H (70-100) mg/dL Lactic Acid (0.5-2.0) mmol/L Calcium 9.6 (8.6-10.3) mg/dL Total Bilirubin 0.60 (0.2-1.0) mg/dL AST 17 (13-39) U/L ALT 16 (7-52) U/L Alkaline Phosphatase 58 (34-104) U/L Troponin I 0.00 (<0.04) ng/mL Total Protein 7.4 (6.4-8.9) g/dL Albumin 4.2 (3.2-5.2) g/dL Globulin 3.2 (2-4) g/dL Albumin/Globulin Ratio 1.3 (1-3) 11/23/17 Range/Units 16:36 WBC (3.5-10.8) 10^3/ul RBC (4.0-5.4) 10^6/ul Hgb (12.0-16.0) g/dl Hct (35-47) % MCV (80-97) fL MCH (27-31) pg MCHC (31-36) g/dl RDW (10.5-15) % Plt Count (150-450) 10^3/ul MPV (7.4-10.4) um3 Neut % (Auto) (38-83) % Lymph % (Auto) (25-47) % [place] % (Auto) (0-7) % Eos % (Auto) (0-6) % Baso % (Auto) (0-2) % Absolute Neuts (auto) (1.5-7.7) 10^3/ul Absolute Lymphs (auto) (1.0-4.8) 10^3/ul Absolute Monos (auto) (0-0.8) 10^3/ul Absolute Eos (auto) (0-0.6) 10^3/ul Absolute Basos (auto) (0-0.2) 10^3/ul Absolute Nucleated RBC 10^3/ul Nucleated RBC % INR (Anticoag Therapy) (0.77-1.02) Sodium (133-145) mmol/L Potassium (3.5-5.0) mmol/L Chloride (101-111) mmol/L Carbon Dioxide (22-32) mmol/L Anion Gap (2-11) mmol/L BUN (6-24) mg/dL Creatinine (0.51-0.95) mg/dL Est GFR ( Amer) (>60) Est GFR (Non-Af Amer) (>60) BUN/Creatinine Ratio (8-20) Glucose (70-100) mg/dL Lactic Acid 0.9 (0.5-2.0) mmol/L Calcium (8.6-10.3) mg/dL Total Bilirubin (0.2-1.0) mg/dL AST (13-39) U/L ALT (7-52) U/L Alkaline Phosphatase (34-104) U/L Troponin I (<0.04) ng/mL Total Protein (6.4-8.9) g/dL Albumin (3.2-5.2) g/dL Globulin (2-4) g/dL Albumin/Globulin Ratio (1-3) Result Diagrams: 11/23/17 16:36 11/23/17 16:36 Lab Statement: Any lab studies that have been ordered have been reviewed, and results considered in the medical decision making process. - CT Brain CT CT Interpretation: Positive (See Comments) - 1. Moderate volume of RIGHT greater than LEFT bilateral supratentorial subarachnoid hemorrhage. Associated sulcal effacement at the bilateral temporal and RIGHT frontal and parietal lobes. Negative for midline shift or downward herniation. 2. Stigmata of probable chronic small vessel ischemic disease. Dr. Deng has reviewed this report. CT Interpretation Completed By: Radiologist - EKG 15:47 Cardiac Rate: NL EKG Rhythm: Sinus Rhythm - 75 BPM Ectopy: None EKG Interpretation: LVH Course/Dx - Course Course Of Treatment: DISCUSSED WITH DR BENITES, NEUROSURGERY. BECAUSE THE PATIENT WILL NEED AN ANGIOGRAM, WHICH WE DO NOT DO HERE AT [facility] [place], HE RECOMMENDED TRANSFER TO [facility]. ACCEPTED IN TRANSFER AT [facility] [place] BY [place] LAMAR. STABLE AT TRANSFER. Assessment/Plan: Medications reviewed. Allergies noted. BP noted and advised to follow-up with PCP. - Diagnoses Provider Diagnoses: HTN (hypertension), Subarachnoid hemorrhage - Physician Notifications Discussed Care Of Patient With: Vassildon Alexandre Time Discussed With Above Provider: 17:37 Instructed by Provider To: Transfer - Dr. Alexandre, neurosurgeon, recommends transferring pt to [facility]. Dr. Kai Lamar, neurosugeon, has accepted the patient transfer to [facility] at 18:55. The patient will go straight to the ED. - Critical Care Time Critical Care Time: 30-74 min Discharge - Discharge Plan Condition: Stable Disposition: TRANS HIGHER LVL OF CARE FAC Referrals: Jeff Orellana MD [Primary Care Provider] - Additional Instructions: Your blood pressure was elevated during todays visit; please follow up with your primary care provider within a week for further evaluation. The documentation as recorded by the Ari graham Jennifer accurately reflects the service I personally performed and the decisions made by me, Caden Deng MD.
[2017-11-23] MEDS ORDERED: Labetalol IV* 5 MG/ML 20 ML VIAL IV PUSH ONE ×2 (19:11→19:58)
[2017-11-23] MEDS ORDERED: Labetalol IV* 5 MG/ML 20 ML VIAL ONE (19:15)
[2017-11-23 21:06] VITALS: BP 133/92
== END 2017-11-23 19:17 | disposition short-term general hospital (02) ==
LOC: ED 15:40
DX: I10 Essential (primary) hypertension (principal); I60.9 Nontraumatic subarachnoid hemorrhage, unspecified; R47.81 Slurred speech; R51 Headache; R11.10 Vomiting, unspecified; Z87.891 Personal history of nicotine dependence
CPT/HCPCS: 36415; 70450; 80053; 83605; 84484; 85025; 85610; 93005; 96365; 99285; J2060; J3490

== ENCOUNTER → 2018-12-27 11:47 | Day surgery (SDC) | payer BC ==
[~2018-12-27 11:47] MED LIST changes: -Buffered Lidocaine 0.9% SYRIN* 5 ML/SYR SYRINGE INTRADERM ONE; +Buffered Lidocaine 1% SYRIN* 1 ML/SYRINGE INTRADERM ONE; +Bupivacaine 0.25% SDV PF* 10 ML VIAL INJ ONE; +Clindamycin 900 MG/D5W BAG(*) 900 MG/50 ML BAG IVPB ONE; +Dexamethasone IV* 4 MG/ML 1 ML (4 MG) IV SLOW PU ONE; +Dexamethasone IV* 4 MG/ML 1 ML (4 MG) ONE; +Famotidine IV* 10 MG/ML 2 ML (20 mg) ONE; +Lactated Ringers 1000 ML Bag* 1,000 ML IV SCH; +Midazolam* 1 MG/ML 5 ML VIAL (5 MG) ONE; +Naloxone* 0.4 MG/ML 1 ML VIAL IV PRN; +Ondansetron INJ* 2 MG/ML VIAL ONE; +Propofol* 10 MG/ML 20 ML BTL ONE; +fentaNYL* 50 MCG/ML 2 ML VIAL (100 MCG VIAL) ONE
[2018-12-27 16:57] VITALS: BP 131/87
== END | disposition home or self-care (01) ==
LOC: OR 11:47
PROVIDERS: ATTEND Plastic Surgery
DX: C44.722 Squamous cell carcinoma of skin of right lower limb, including hip (principal); Z86.73 Personal history of transient ischemic attack (TIA), and cerebral infarction without residual deficits; Z85.828 Personal history of other malignant neoplasm of skin; I10 Essential (primary) hypertension; F41.8 Other specified anxiety disorders; E03.9 Hypothyroidism, unspecified; I08.2 Rheumatic disorders of both aortic and tricuspid valves
CPT/HCPCS: 88305; 88331; J1100; J2250; J2405; J2704; J3010; J3490

== ENCOUNTER 2019-02-21 10:15 | Day surgery (SDC) | payer BC ==
[~2019-02-21 10:15] MED LIST changes: -Bupivacaine 0.25% SDV PF* 10 ML VIAL INJ ONE; +Clindamycin 900 MG IVPREMIX(* 900 MG/50 ML SDV IV ONE; -Clindamycin 900 MG/D5W BAG(*) 900 MG/50 ML BAG IVPB ONE; -Dexamethasone IV* 4 MG/ML 1 ML (4 MG) IV SLOW PU ONE; -Dexamethasone IV* 4 MG/ML 1 ML (4 MG) ONE; +Dexamethasone TAB* 4 MG ONE; -Famotidine IV* 10 MG/ML 2 ML (20 mg) IV ONE; -Midazolam* 1 MG/ML 5 ML VIAL (5 MG) ONE; -Naloxone* 0.4 MG/ML 1 ML VIAL IV PRN; -Ondansetron INJ* 2 MG/ML VIAL ONE; -Propofol* 10 MG/ML 20 ML BTL ONE; -fentaNYL* 50 MCG/ML 2 ML VIAL (100 MCG VIAL) ONE
[2019-02-21] MEDS ORDERED: Methylene Blue 0.5 %* 50 MG/10 ML AMP IV ONE (12:22)
[2019-02-21] MEDS ORDERED: Lidocain 1% EPI 1:100,000 * 30 ML MDV ONE (12:22)
[2019-02-21] MEDS ORDERED: Naloxone* 0.4 MG/ML 1 ML VIAL IV PRN (12:23)
[2019-02-21] MEDS ORDERED: Bupivacaine 0.25% SDV PF* 10 ML VIAL INJ ONE (12:23)
[2019-02-21] MEDS ORDERED: Mineral Oil Sterile, TOPICAL* 25 ML BTL ONE (12:23)
[2019-02-21] MEDS ORDERED: Midazolam* 1 MG/ML 2 ML VIAL (2 MG) ONE ×2 (12:37→12:44)
[2019-02-21] MEDS ORDERED: fentaNYL* 50 MCG/ML 2 ML VIAL (100 MCG VIAL) ONE (12:37)
[2019-02-21] MEDS ORDERED: Propofol* 10 MG/ML 20 ML BTL ONE (12:48)
[2019-02-21] MEDS ORDERED: Lidocaine 2% PF * 5 ML VIAL ONE (12:48)
[2019-02-21 15:16] VITALS: BP 141/90
== END 2019-02-21 15:10 | disposition home or self-care (01) ==
LOC: OR 10:15
PROVIDERS: ATTEND Plastic Surgery
DX: C44.729 Squamous cell carcinoma of skin of left lower limb, including hip (principal); I10 Essential (primary) hypertension; F41.8 Other specified anxiety disorders; E78.00 Pure hypercholesterolemia, unspecified; E03.9 Hypothyroidism, unspecified; G25.0 Essential tremor; Z86.73 Personal history of transient ischemic attack (TIA), and cerebral infarction without residual deficits; Z85.828 Personal history of other malignant neoplasm of skin
CPT/HCPCS: 88305; 88331; 88332; A9270-GY; J2250; J2704; J3010; J3490; J8540